=== PATIENT | female | born 1990 | race Caucasian/White ===

== ENCOUNTER 2016-07-02 07:45 | Emergency (ER) | payer OTHER ==
[~2016-07-02] VITALS: Ht 152.4 cm; Wt 82.1 kg
[~2016-07-02 07:45] MED LIST: ALEVE220 MG PO; AMOX TR-K CLV1 EAC3 PO; AUGMENTIN875 MG PO; BACTRIM,SEPT1 TABLET PO; CEFDINIR300 MG PO; COLACE100 MG PO; INDOCIN25 MG PO; METHADONE H5 MG/5 ML PO; MOTRIN600 MG PO; NOHOMEMEDS; NORCO 5/3251 TABLET PO; OMEPRAZOLE20 MG PO; VENTOLIN HFA18 GM IH; ZITHROMAX Z-PA250 MG PO
[2016-07-02 09:44] LABS: INFLUENZA A VIRAL ANTIGEN NEGATIVE; INFLUENZA B VIRAL ANTIGEN NEGATIVE
[2016-07-02 09:50] VITALS: BP 122/78
== END 2016-07-02 09:58 | disposition home or self-care (01) ==
LOC: EME 07:45
PROVIDERS: Nurse Practitioner Family
DX: J06.9 Acute upper respiratory infection, unspecified (principal); F17.200 Nicotine dependence, unspecified, uncomplicated
CPT/HCPCS: 87502; 87651 90; 99281; 99285